=== PATIENT | male | born 1965 | race African-American/Black ===

== ENCOUNTER 2020-02-01 08:05 | Emergency (ER) | payer OTHER ==
[~2020-02-01] VITALS: Ht 180.3 cm; Wt 63.0 kg
[~2020-02-01 08:05] MED LIST: ACET325T21 PO; FOLI0.4T2 PO; GABA-585 PO; MOME13HF IH
[2020-02-01] MEDS ORDERED: HYDROcodone/APAP 5/325MG 1 TAB TABLET PO ONE (08:30)
--- NOTE | 2020-02-01 09:02 | RAD ---
CHEST AP ONLY 02/01/2020 8:29 AM INDICATION: Pain COMPARISON: None available TECHNIQUE: Portable frontal view of the chest is provided. FINDINGS: The cardiomediastinal silhouette is within normal limits. Lungs are clear. Bilateral calcified mediastinal lymphadenopathy. There are no significant pleural effusions. There is no pulmonary vascular congestion. No pneumothorax. No suspicious osseous abnormality. Vascular stents are identified in the suspected left subclavian the left brachiocephalic veins. Battery pack projects over the left lateral chest wall with a single lead projecting over the T6 vertebral level. IMPRESSION: There is no acute cardiopulmonary process. Electronically signed by: Raquel Wu MD (02/01/2020 8:59 AM) [id number]
[2020-02-01 09:44] LABS: BASO # 0.1 x10^3/uL (0.0-0.2); BASO % 1 % (0-3); EOS # 0.9 x10^3/uL (0.0-0.7); EOS % 11 % (0-3); HEMATOCRIT 35.3 % (39.0-53.0); HEMOGLOBIN 11.7 g/dL (13.0-17.5); LYMPH # 1.7 x10^3/uL (1.0-4.8); LYMPH % 20 % (24-48); MEAN CORPUSCULAR HEMOGLOBIN 29 pg (25-35); MEAN CORPUSCULAR HGB CONC 33 g/dL (31-37); MEAN CORPUSCULAR VOLUME 86 fL (79-100); MONO # 0.9 x10^3/uL (0.0-1.1); MONO % 12 % (0-9); NEUT # 4.6 x10^3/uL (1.8-7.7); NEUT % 56 % (31-73); PLATELET COUNT 162 x10^3/uL (140-400); RED BLOOD COUNT 4.08 x10^6/uL (4.30-5.70); WHITE BLOOD COUNT 8.1 x10^3/uL (4.0-11.0)
[2020-02-01 09:55] LABS: CALCIUM 8.2 mg/dL (8.5-10.1); CREATININE 15.4 mg/dL (0.7-1.3); POTASSIUM 5.4 mmol/L (3.5-5.1)
[2020-02-01 09:59] LABS: ALBUMIN 3.3 g/dL (3.4-5.0); ALBUMIN/GLOBULIN RATIO 0.9 (1.0-1.7); TOTAL BILIRUBIN 0.3 mg/dL (0.2-1.0); TOTAL PROTEIN 6.9 g/dL (6.4-8.2)
[2020-02-01] MEDS ORDERED: MORPHINE SULFATE 4 MG/ML VIAL. IV ONE (11:15)
[2020-02-01] MEDS ORDERED: ONDANSETRON PF 4 MG/2 ML VIAL. IVP ONE (11:15)
[2020-02-01] MEDS ORDERED: MORPHINE SULFATE 4 MG/ML VIAL. IM ONE (11:30)
[2020-02-01] MEDS ORDERED: ONDANSETRON PF 4 MG/2 ML VIAL. IM ONE (11:30)
--- NOTE | 2020-02-01 11:38 | PHYS DOC ---
Past Medical History Past Medical History: CAD, CHF, Hypertension, Renal Failure Additional Past Medical Histor: BACK PAIN, DIALYSIS Past Surgical History: Appendectomy Additional Past Surgical Histo: INTERNAL DEFIBRILLATOR, LT KNEE Smoking Status: Former Smoker Alcohol Use: Sober Drug Use: None General Adult EDM: Chief Complaint: CHEST PAIN HPI: HPI: Patient is a 54 year old male presenting to the ED with chief complaint of chest pain. Patient states that he is on dialysis and went to dialysis this morning as he has it every Saturday. Patient was told that he would not be able to get dialysis this morning due to mechanical issue in the building. Patient was told to come back on Saturday. Patient came to the ED to have a chest pain checked out. Patient states that the pain is been going on since last night. Review of Systems: Review of Systems: Constitutional: Denies fever or chills. [] Eyes: Denies change in visual acuity. [] HENT: Denies nasal congestion or sore throat. [] Respiratory: Denies cough or shortness of breath. [] Cardiovascular: Complains of chest pain. [] GI: Denies abdominal pain, nausea, vomiting, bloody stools or diarrhea. [] : Denies dysuria. [] Heart Score: HEART Score for Chest Pain: HEART Score for Chest Pain Response (Comments) Value History Slighlty/Non-Suspicious 0 ECG Normal 0 Age >45 - < 65 1 Risk Factors 1 or 2 Risk Factors 1 Troponin < Normal Limit 0 Total 2 Risk Factors: Risk Factors: DM, Current or recent (<one month) smoker, HTN, HLP, family history of CAD, obesity. Risk Scores: Score 0 - 3: 2.5% MACE over next 6 weeks - Discharge Home Score 4 - 6: 20.3% MACE over next 6 weeks - Admit for Clinical Observation Score 7 - 10: 72.7% MACE over next 6 weeks - Early Invasive Strategies Current Medications: Current Medications Medications (Trade) Dose Ordered Sig/Patrick Start Time Stop Time Status Last Admin Dose Admin Acetaminophen/ Hydrocodone Bitart (Lortab 5/325) 1 tab 1X ONCE 02/01/20 08:30 02/01/20 08:41 DC 02/01/20 09:02 1 TAB Morphine Sulfate (Morphine Sulfate) 4 mg 1X ONCE 02/01/20 11:30 02/01/20 11:31 DC 02/01/20 11:21 4 MG Ondansetron HCl (Zofran) 4 mg 1X ONCE 02/01/20 11:30 02/01/20 11:31 DC 02/01/20 11:21 4 MG Allergies: Allergies: Allergies Coded Allergies Type Severity Reaction Last Updated Verified No Known Drug Allergies 01/20/20 No Physical Exam: PE: Constitutional: Well developed, well nourished, no acute distress, non-toxic appearance. [] HENT: Normocephalic, atraumatic Eyes: EOMI Neck: Normal range of motion, Supple Cardiovascular:Heart rate regular rhythm Lungs & Thorax: Bilateral rhonchi [] Abdomen: Bowel sounds normal, soft, no tenderness Extremities: Dialysis fistula in the left upper extremity Neurologic: Alert and oriented X 3 Current Patient Data: Labs: Laboratory Tests Test 02/01/20 09:05 White Blood Count 8.1 x10^3/uL (4.0-11.0) Red Blood Count 4.08 x10^6/uL (4.30-5.70) L Hemoglobin 11.7 g/dL (13.0-17.5) L Hematocrit 35.3 % (39.0-53.0) L Mean Corpuscular Volume 86 fL (79-100) Mean Corpuscular Hemoglobin 29 pg (25-35) Mean Corpuscular Hemoglobin Concent 33 g/dL (31-37) Red Cell Distribution Width 17.0 % (11.5-14.5) H Platelet Count 162 x10^3/uL (140-400) Neutrophils (%) (Auto) 56 % (31-73) Lymphocytes (%) (Auto) 20 % (24-48) L Monocytes (%) (Auto) 12 % (0-9) H Eosinophils (%) (Auto) 11 % (0-3) H Basophils (%) (Auto) 1 % (0-3) Neutrophils # (Auto) 4.6 x10^3/uL (1.8-7.7) Lymphocytes # (Auto) 1.7 x10^3/uL (1.0-4.8) Monocytes # (Auto) 0.9 x10^3/uL (0.0-1.1) Eosinophils # (Auto) 0.9 x10^3/uL (0.0-0.7) H Basophils # (Auto) 0.1 x10^3/uL (0.0-0.2) Sodium Level 139 mmol/L (136-145) Potassium Level 5.4 mmol/L (3.5-5.1) H Chloride Level 99 mmol/L (98-107) Carbon Dioxide Level 28 mmol/L (21-32) Anion Gap 12 (6-14) Blood Urea Nitrogen 90 mg/dL (8-26) H Creatinine 15.4 mg/dL (0.7-1.3) H Estimated GFR (Cockcroft-Gault) 4.0 BUN/Creatinine Ratio 6 (6-20) Glucose Level 87 mg/dL (70-99) Calcium Level 8.2 mg/dL (8.5-10.1) L Total Bilirubin 0.3 mg/dL (0.2-1.0) Aspartate Amino Transferase (AST) 23 U/L (15-37) Alanine Aminotransferase (ALT) 24 U/L (16-63) Alkaline Phosphatase 181 U/L (46-116) H Troponin I Quantitative < 0.017 ng/mL (0.000-0.055) QQ-Obn-K-Type Natriuretic Peptide 3371 pg/mL (0-124) H Total Protein 6.9 g/dL (6.4-8.2) Albumin 3.3 g/dL (3.4-5.0) L Albumin/Globulin Ratio 0.9 (1.0-1.7) L Laboratory Tests 02/01/20 09:05 Laboratory Tests 02/01/20 09:05 Vital Signs: Vital Signs Date Time Temp Pulse Resp B/P (MAP) Pulse Ox O2 Delivery O2 Flow Rate FiO2 02/01/20 11:21 Room Air 02/01/20 09:02 20 02/01/20 08:05 98.1 79 158/88 (111) 98 98.1 EKG: EKG: EKG interpretation 8:13 AM on 02/01/2020 HR: 76 Sinus rhythm Regular intervals Normal axis Nonspecific ST changes No STEMI Radiology/Procedures: Radiology/Procedures: [] Impression: CXR IMPRESSION: There is no acute cardiopulmonary process. Course & Med Decision Making: Course & Med Decision Making Pertinent Labs and Imaging studies reviewed. (See chart for details) EKG does not show any acute changes. Chest x-ray does not show any acute disease. Troponin is negative Potassium is 5.4. I discussed case with Dr. Doe who is on-call nephrology. He states that patient can be safe to dialysis on Saturday. Discussed results and plan of care with patient. Patient is instructed to follow up with PCP in one to 2 days. Appropriate discharge instructions given to patient to return to the ED or to seek immediate medical evaluation. Patient is instructed to return to the ED if symptoms worsen or if any concerns. Chapin Disclaimer: Chapin Disclaimer: This electronic medical record was generated, in whole or in part, using a voice recognition dictation system. Departure Departure Impression: Primary Impression: Chest pain Additional Impression: Dialysis patient Disposition: HOME, SELF-CARE Condition: GOOD Referrals: NO PCP (PCP) Patient Instructions: Chest Pain (Nonspecific), Dialysis, Hyperkalemia Additional Instructions: Discussed results and plan of care with patient. Patient is instructed to follow up with PCP in one to 2 days. Appropriate discharge instructions given to patient to return to the ED or to seek immediate medical evaluation. Patient is instructed to return to the ED if symptoms worsen or if any concerns. Justicifation of Admission Dx: Justifications for Admission: Justification of Admission Dx: LEX Abdi DO Feb 01, 2020 11:37
[2020-02-01 11:40] VITALS: BP 156/87
[2020-02-01] MEDS ORDERED: NOREPINEPHRINE VIAL 8 MG in IV DEXTROSE 5% 250 ML IV ONE (11:45)
[2020-02-01] MEDS ORDERED: SODIUM POLYSTYRENE SULFON/SORB 15 GM/60 ML ORAL.SUSP. PO ONE (11:45)
--- NOTE | 2020-02-01 12:11 | EKG ---
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
== END 2020-02-01 12:00 | disposition home or self-care (01) ==
LOC: ER 08:05
DX: R07.89 Other chest pain (principal); I13.0 Hypertensive heart and chronic kidney disease with heart failure and stage 1 through stage 4 chronic kidney disease, or unspecified chronic kidney disease; N18.9 Chronic kidney disease, unspecified; I50.9 Heart failure, unspecified; I25.10 Atherosclerotic heart disease of native coronary artery without angina pectoris; Z90.89 Acquired absence of other organs; Z98.890 Other specified postprocedural states; Z87.891 Personal history of nicotine dependence; Z79.899 Other long term (current) drug therapy
CPT/HCPCS: 36415; 71045; 80053; 83880; 84484; 85025; 93005; 96372; 99285; J2270; J2405